=== PATIENT | female | born 1995 | race Caucasian/White ===

== ENCOUNTER 2018-02-08 08:16 | Emergency (ER) | payer OTHER ==
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
[2018-02-08 09:32] VITALS: BP 114/74
== END 2018-02-08 09:30 | disposition home or self-care (01) ==
LOC: ED 08:16
DX: S01.81XA Laceration without foreign body of other part of head, initial encounter (principal); S60.512A Abrasion of left hand, initial encounter; S60.511A Abrasion of right hand, initial encounter; V19.9XXA Pedal cyclist (driver) (passenger) injured in unspecified traffic accident, initial encounter; Y93.55 Activity, bike riding; Y92.89 Other specified places as the place of occurrence of the external cause
CPT/HCPCS: 12011; 99281